=== PATIENT | male | born 1990 | race Caucasian/White ===

== ENCOUNTER 2018-05-22 21:10 | Emergency (ER) | payer OTHER ==
--- NOTE | 2018-05-22 21:49 | EDM.PDOC ---
ED HPI GENERAL MEDICAL PROBLEM - General Chief Complaint: Laceration Stated Complaint: laceration Time Seen by Provider: 05/22/18 21:22 Source of Information: Reports: Patient History Limitations: Reports: No Limitations - History of Present Illness INITIAL COMMENTS - FREE TEXT/NARRATIVE: Patient bumped head on sprayer while crawling underneath. Was at work. No LOC. Sustained laceration topmost part of head. No other injuries. Headache Pain Score (Numeric/FACES): 2 - Related Data Allergies Allergy/AdvReac Type Severity Reaction Status Date / Time No Known Allergies Allergy Verified 05/22/18 21:19 Home Meds: Home Meds . [No Known Home Meds] 05/22/18 [History] Past Medical History - Past Health History Medical/Surgical History: Denies Medical/Surgical History ED ROS GENERAL - Review of Systems Review Of Systems: ROS reveals no pertinent complaints other than HPI. ED EXAM, SKIN/RASH Exam: See Below Exam Limited By: No Limitations General Appearance: Alert, WD/WN, No Apparent Distress Eye Exam: Bilateral Eye: EOMI, PERRL Ears: Normal External Exam, Normal Canal Nose: Normal Inspection Throat/Mouth: Normal Inspection, Normal Lips, Normal Voice, No Airway Compromise Head: Other (linear laceration top of head, 8cm, bleeding controlled. ) Neck: Normal Inspection Respiratory/Chest: No Respiratory Distress Extremities: Normal Range of Motion, Normal Capillary Refill Neurological: Alert, Oriented, CN II-XII Intact, Normal Cognition, Normal Gait, No Motor/Sensory Deficits Psychiatric: Normal Affect, Normal Mood Skin: Warm, Dry, Normal Color, Wound/Incision ED SKIN PROCEDURES - Laceration/Wound Repair crown of head Lac/Wound length In cm: 8 Appearance: Subcutaneous, Linear, Clean Skin Prep: Providone-Iodine (Betadine) Exploration/Debridement/Repair: Wound Explored, In a Bloodless Field, Explored to Base, No Foreign Material Found Closed with: [place] # of Sutures: 8 Drain Placement: No Sterile Dressing Applied: Nurse Tetanus Status Addressed: Yes Complications: No Course - Vital Signs Last Recorded V/S: Last Vital Signs Temp 36.8 C 05/22/18 21:10 Pulse 102 H 05/22/18 21:10 Resp 20 05/22/18 21:10 BP 163/104 H 05/22/18 21:10 Pulse Ox 96 05/22/18 21:10 - Orders/Labs/Meds Orders: Active Orders 24 hr Category Date Time Status Vaccines to be Administered [RC] PER UNIT ROUTINE Care 05/22/18 21:46 Ordered Meds: Medications Discontinued Medications Generic Name Dose Route Start Last Admin Trade Name [place] PRN Reason Stop Dose Admin Diphtheria/Tetanus/Acell Pertussis 0.5 ml 05/22/18 21:46 Adacel IM 05/22/18 21:47 .ONCE ONE - Re-Assessments/Exams Free Text/Narrative Re-Assessment/Exam: 05/22/18 21:54 Laceration repaired. Precautions reviewed. Wound care and staple removal reviewed. Patient's BP improved over time. Recommended recheck of BP at time of staple removal due to elevation noted today, however most likely secondary to stress of injury and needing to come to ER. Departure - Departure Time of Disposition: 21:47 Disposition: Home, Self-Care 01 Condition: Good Clinical Impression: Laceration of head Qualifiers: Encounter type: initial encounter Location of open wound of head: scalp Foreign body presence: without foreign body Qualified Code(s): S01.01XA - Laceration without foreign body of scalp, initial encounter - Discharge Information Instructions: Stitches, [place], or Adhesive Wound Closure, [id number] Referrals: Sahra Garner PA-C [Primary Care Provider] - Forms: ED Department Discharge Additional Instructions: Given size of laceration/location/risk of re-opening it if you bump the area, get felecia out in 10 days. OK to apply antibiotic ointment. Watch for infection and follow up if you have any concerns/have increased pain/redness/worsening drainage. - My Orders Last 24 Hours: My Active Orders 05/22/18 21:46 Vaccines to be Administered [RC] PER UNIT ROUTINE - Assessment/Plan Last 24 Hours: My Active Orders 05/22/18 21:46 Vaccines to be Administered [RC] PER UNIT ROUTINE
[2018-05-22] MEDS: Diphtheria,Pertussis(Acell),Tetanus Vaccine 0.5 ML SDV IM ONE (21:52)
== END 2018-05-22 22:00 | disposition home or self-care (01) ==
LOC: LL.ED 21:10
DX: S01.01XA Laceration without foreign body of scalp, initial encounter (principal); Z23 Encounter for immunization; W22.8XXA Striking against or struck by other objects, initial encounter
CPT/HCPCS: 12004; 90471; 90715; 99283